=== PATIENT | male | born 1990 | race Caucasian/White ===

== ENCOUNTER 2021-12-18 04:08 | Emergency (ER) | payer OTHER ==
[2021-12-18] MEDS ORDERED: TRANEXAMIC ACID IN NACL,ISO-OS 1,000 MG in SALINE 1 100ML.BAG IV STA (04:20)
[2021-12-18] MEDS ORDERED: SODIUM CHLORIDE 0.9% 1,000 ML IV STA (04:20)
[2021-12-18 04:28] LABS: Basophils # (A) 0.1 k/uL (0-0.2); Basophils % (A) 1 %; Eosinophils # (A) 0.1 k/uL (0-0.7); Eosinophils % (A) 1 %; HCT 42.3 % (39.0-53.0); Lymphocytes # (A) 3.6 k/uL (1.0-4.8); Lymphocytes % (A) 17 %; MCH 31.3 pg (25.0-35.0); MCHC 33.1 g/dL (31.0-37.0); MCV 94.5 fL (80.0-100.0); Mean Platelet Volume 7.8; Monocytes # (A) 0.7 k/uL (0-1.0); Monocytes % (A) 4 %; Neutrophils # (A) 16.4 k/uL (1.3-7.7); Neutrophils % (A) 77 %; Platelet Count 295 k/uL (150-450); RBC 4.48 m/uL (4.30-5.90); RDW 12.4 % (11.5-15.5); WBC 21.2 k/uL (3.8-10.6)
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
[2021-12-18 04:42] LABS: ALT 127 U/L (4-49); African American GFR (CKD) 58 (>60 ml/min/1.73 sqM); Albumin 3.5 g/dL (3.5-5.0); Alcohol <10 mg/dL; Anion Gap 36 mmol/L; Blood Urea Nitrogen 29 mg/dL (9-20); Calcium 7.7 mg/dL (8.4-10.2); Carbon Dioxide 21 mmol/L (22-30); Chloride 109 mmol/L (98-107); Glucose 186 mg/dL (74-99); Non-African American GFR(CKD) 50 (>60 ml/min/1.73 sqM); Total Bilirubin 0.9 mg/dL (0.2-1.3); Total Protein 5.8 g/dL (6.3-8.2)
[2021-12-18 04:45] LABS: INR 1.4 (<1.2); Partial Thromboplastin Time 51.4 sec (22.0-30.0); Prothrombin Time 14.8 sec (9.0-12.0)
[2021-12-18 04:54] LABS: AST 224 U/L (17-59); Alkaline Phosphatase 54 U/L (38-126); Potassium 3.1 mmol/L (3.5-5.1); Sodium 166 mmol/L (137-145)
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
[2021-12-18] MEDS ORDERED: DIPH,PERTUS(ACELL)TETVAC-LF 0.5 ML VIAL IM ONE (05:04)
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
--- NOTE | 2021-12-18 05:17 | XR ---
EXAMINATION TYPE: XR chest 1V confirm line [facility] DATE OF EXAM: 12/18/2021 COMPARISON: Today HISTORY: Chest tube TECHNIQUE: Single view FINDINGS: There is left-sided chest tube in good position. There is clearing of the left-sided pneumo thorax. Multiple right-sided rib fractures noted. Trachea is midline. Heart size is normal. IMPRESSION: Chest tube in good position.
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
== END 2021-12-18 07:08 | disposition other institution (70) ==
LOC: EDBD → EC 04:08
DX: S27.0XXA Traumatic pneumothorax, initial encounter (principal); S22.41XA Multiple fractures of ribs, right side, initial encounter for closed fracture; S00.83XA Contusion of other part of head, initial encounter; V29.9XXA Motorcycle rider (driver) (passenger) injured in unspecified traffic accident, initial encounter
CPT/HCPCS: 36415; 94002; 86900; 86901; 80053; 84484; 85025; 85610; 85730; 86850; 86920; 80320; 72170; 71045; 72125; 70450; 71260; 74177; 99291; 31500; 32551; P9016; Q9967